=== PATIENT | male | born 1955 | race Caucasian/White ===

== ENCOUNTER 2020-06-14 07:40 | Emergency (ER) | payer SELFPAY, BC ==
[~2020-06-14] VITALS: Ht 180.3 cm; Wt 100.0 kg
[2020-06-14 07:43] VITALS: BP 153/92
--- NOTE | 2020-06-14 08:03 | NUR ---
Dr Naidu at bedside.
== END 2020-06-14 08:10 | disposition home or self-care (01) ==
LOC: ER 07:41
DX: R50.9 Fever, unspecified (principal); R19.7 Diarrhea, unspecified; R53.83 Other fatigue; Z20.828 Contact with and (suspected) exposure to other viral communicable diseases
CPT/HCPCS: 36415; 71045; 99281